=== PATIENT | female | born 1965 | race Caucasian/White ===

== ENCOUNTER 2017-09-20 07:59 | Day surgery (SDC) | payer OTHER ==
[2017-09-20] MEDS ORDERED: FENTAnyl 50 MCG/ML VIAL (09:54)
[2017-09-20] MEDS ORDERED: MIDAZOLAM 1 MG/ML 2 ML INJ (09:54)
== END 2017-09-20 10:38 | disposition home or self-care (01) ==
LOC: GIL 07:59
DX: Z12.11 Encounter for screening for malignant neoplasm of colon (principal); K64.8 Other hemorrhoids; I10 Essential (primary) hypertension
CPT/HCPCS: 45378

== ENCOUNTER 2018-05-11 07:02 | Day surgery (SDC) | payer OTHER ==
[~2018-05-11 07:02] MED LIST: EPHEDrine SULFATE 50 MG/5 ML SYG
[2018-05-11] MEDS ORDERED: CEFAZOLIN 1 GM INJ (08:03)
[2018-05-11] MEDS ORDERED: PROPOFOL 20 ML (08:03)
[2018-05-11] MEDS ORDERED: MIDAZOLAM 1 MG/ML 2 ML INJ (08:03)
[2018-05-11] MEDS ORDERED: FENTAnyl 50 MCG/ML VIAL ×2 (08:03→09:09)
[2018-05-11] MEDS ORDERED: ROCURONIUM 50 MG INJ (08:03)
[2018-05-11] MEDS: LIDOCAINE 1%/EPI 30 ML INJ (08:53)
[2018-05-11] MEDS ORDERED: DIPHENHYDRAMINE 50 MG INJ IV (09:00)
[2018-05-11] MEDS ORDERED: FENTAnyl 50 MCG/ML VIAL IV ×3 (09:00)
[2018-05-11] MEDS ORDERED: LABETALOL HCL 20MG INJ IV (09:00)
[2018-05-11] MEDS ORDERED: EPHEDrine SULFATE 50 MG/5 ML SYG IV (09:00)
[2018-05-11] MEDS ORDERED: MEPERIDINE 25 MG INJ IV (09:00)
[2018-05-11] MEDS ORDERED: HYDROmorphONE 1 MG/5 ML IV SYRINGE IV ×2 (09:00)
[2018-05-11] MEDS ORDERED: METOCLOPRAMIDE 10 MG INJ IV (09:00)
[2018-05-11] MEDS ORDERED: OXYCODONE/ACETAMINOPHEN (5/325) TAB PO (09:00)
[2018-05-11] MEDS ORDERED: hydrALAzine 20 MG INJ IV (09:00)
[2018-05-11] MEDS ORDERED: DEXAMETHASONE 4 MG/ML 1 ML INJ (09:07)
[2018-05-11] MEDS ORDERED: METOCLOPRAMIDE 10 MG INJ (09:07)
[2018-05-11] MEDS ORDERED: ONDANSETRON 4 MG INJ (09:07)
[2018-05-11] MEDS ORDERED: NEOSTIGMINE 3 MG/3 ML SYRINGE (09:49)
[2018-05-11] MEDS ORDERED: GLYCOPYRROLATE 0.4 MG INJ (09:49)
[2018-05-11] MEDS: HYDROmorphONE 1 MG/5 ML IV SYRINGE IV (10:38)
[2018-05-11] MEDS: ONDANSETRON 4 MG INJ IV (10:39)
== END 2018-05-11 12:10 | disposition home or self-care (01) ==
LOC: SDS 07:02
DX: E04.2 Nontoxic multinodular goiter (principal)
CPT/HCPCS: 60220; 84703; 88307